=== PATIENT | female | born 1990 | race Caucasian/White ===

== ENCOUNTER 2016-08-09 20:43 | Emergency (ER) | payer SELFPAY ==
[~2016-08-09] VITALS: Ht 162.6 cm; Wt 140.0 kg
[2016-08-09 20:50] VITALS: TEMP 36.7; Ht 162.6 cm; Wt 140.0 kg
[2016-08-09] MEDS ORDERED: IBUP-1050 PO (21:46)
[2016-08-09 22:17] LABS: URINE APPEARANCE CLEAR (CLEAR); URINE BILIRUBIN NEG (NEG); URINE COLOR YELLOW; URINE EPITHELIAL CELL AUTO 0-5 /lpf (0-5); URINE NITRITE NEG (NEG); URINE SPECIFIC GRAVITY 1.003 (1.000-1.030); UROBILINOGEN NEG (NEG); ZZUR CULT IF INDIC CLEAN CATCH NO
[2016-08-09 22:22] LABS: MANUAL MICROSCOPIC REQUIRED? NO; REVIEW REQ? NO
[2016-08-09 22:40] LABS: BASO % 0.3 %; BASO ABS # 0.02 K/uL (0-0.2); COMPLETE YES; HEMATOCRIT 41.1 % (37-47); IG% 0.1 %; LYMPH % 36.1 %; LYMPH ABS # 2.85 K/uL (1.2-3.4); MEAN CELL VOLUME 83.9 fL (80-100); MEAN CORPUSCULAR HEMOGLOBIN 28.6 pg (25-34); MEAN CORPUSCULAR HGB CONC 34.1 g/dl (32-36); MEAN PLATELET VOLUME 10.7 fL (7.4-10.4); MONO % 5.4 %; NEUT % 55.1 %; PLATELET COUNT 228 K/uL (130-400); WHITE BLOOD COUNT 7.89 K/uL (4.8-10.8)
[2016-08-09 23:00] LABS: BUN/CREATININE RATIO 20.7 (10-20); CALCIUM 8.8 mg/dl (8.5-10.1); CREATININE 0.72 mg/dl (0.60-1.20); POTASSIUM 3.9 mmol/L (3.5-5.1)
[2016-08-09 23:02] LABS: ALB/GLOB RATIO 1.1 (0.9-2)
--- NOTE | 2016-08-09 23:38 | EMERGENCY ROOM VISIT NOTE ---
History Report prepared by Messi: Sandi Treadwell Under the Supervision of: Dr. Marisela Huerta M.D. First contact with patient: 23:10 Chief Complaint: VAGINAL BLEEDING Stated Complaint: SEVERE VAGINAL BLEEDING History of Present Illness The patient is a 26 year old female who presents to the Emergency Room with complaints of waxing and waning vaginal bleeding for the past 2 months. She notes that sometimes the bleeding is light, like typical spotting, and sometimes the bleeding is very heavy. Tonight her bleeding was extremely heavy. She bled through a tampon, her underwear, and her pants within 1 hour. When she went to the bathroom she noticed large clots and very heavy bleeding. She bled through another tampon and pad since arriving in the ED. The patient rates her pain as a 4/10 in severity. She also reports headaches and feeling lightheaded. She has not seen a emergency department coordinator for these symptoms. She denies any previous pregnancies. The patient has been eating and drinking normally. Source of History: patient Onset: 2 months ago Position: other (vagina) Symptom Intensity: 4/10 Quality: other (bleeding) Timing: waxes/wanes Associated Symptoms: + headache Note: Pt reports lightheadedness. Review of Systems See HPI for pertinent positives & negatives. A total of 10 systems reviewed and were otherwise negative. Past Medical & Surgical Surgical Problems: (1) History of cholecystectomy (2) S/P tonsillectomy and adenoidectomy Family History Cancer Diabetes mellitus Gallbladder disease Heart disease Hypertension Kidney disease Kidney stones Lung disease Social History Smoking Status: Current Every Day Smoker Alcohol Use: occasionally Drug Use: none Marital Status: in relationship Housing Status: lives with significant other Occupation Status: unemployed Current/Historical Medications Scheduled Ibuprofen (Advil), 400 MG PO PRN UD Norethindrone Acetate (Aygestin), 1 TAB PO DIRECTED Allergies Coded Allergies: Shellfish (Verified Allergy, Mild, 12/01/15) Physical Exam Vital Signs Date Time Temp Pulse Resp B/P Pulse Ox O2 Delivery O2 Flow Rate FiO2 08/10/16 00:01 76 18 152/81 96 08/09/16 22:53 69 18 128/79 96 Room Air 08/09/16 20:50 36.7 85 18 145/87 97 Room Air Physical Exam Vital signs reviewed. General: Well-appearing 26 year old female, in no significant distress. HEENT: No scleral icterus, PERRLA, neck supple. Atraumatic. Cardiovascular: Regular rate and rhythm, no extra sounds. Pulmonary: Clear to auscultation bilaterally, normal work of breathing. Abdomen: Soft, obese, nontender, nondistended, positive bowel sounds. Pelvic: Limited due to body habitus, minimal dark blood in the vault. Musculoskeletal: Atraumatic, no peripheral edema. Neurologic: Patient awake alert and oriented x 3 Skin: Warm, dry, no rash Medical Decision & Procedures Laboratory Results 08/09/16 22:00 Red Blood Count 4.90, Mean Corpuscular Volume 83.9, Mean Corpuscular Hemoglobin 28.6, Mean Corpuscular Hemoglobin Concent 34.1, Mean Platelet Volume 10.7, Neutrophils (%) (Auto) 55.1, Lymphocytes (%) (Auto) 36.1, Monocytes (%) (Auto) 5.4, Eosinophils (%) (Auto) 3.0, Basophils (%) (Auto) 0.3, Neutrophils # (Auto) 4.34, Lymphocytes # (Auto) 2.85, Monocytes # (Auto) 0.43, Eosinophils # (Auto) 0.24, Basophils # (Auto) 0.02 08/09/16 22:00 Test 08/09/16 21:25 08/09/16 22:00 Urine Color YELLOW Urine Appearance CLEAR (CLEAR) Urine pH 7.0 (4.5-7.5) Urine Specific Chromo 1.003 (1.000-1.030) Urine Protein NEG (NEG) Urine Glucose (UA) NEG (NEG) Urine Ketones NEG (NEG) Urine Occult Blood 2+ (NEG) Urine Nitrite NEG (NEG) Urine Bilirubin NEG (NEG) Urine Urobilinogen NEG (NEG) Urine Leukocyte Esterase NEG (NEG) Urine WBC (Auto) 0 /hpf (0-5) Urine RBC (Auto) 0-4 /hpf (0-4) Urine Hyaline Casts (Auto) 0 /lpf (0-5) Urine Epithelial Cells (Auto) 0-5 /lpf (0-5) Urine Bacteria (Auto) NEG (NEG) Urine Test NEG (NEG) White Blood Count 7.89 K/uL (4.8-10.8) Red Blood Count 4.90 M/uL (4.2-5.4) Hemoglobin 14.0 g/dL (12.0-16.0) Hematocrit 41.1 % (37-47) Mean Corpuscular Volume 83.9 fL (80-100) Mean Corpuscular Hemoglobin 28.6 pg (25-34) Mean Corpuscular Hemoglobin Concent 34.1 g/dl (32-36) Platelet Count 228 K/uL (130-400) Mean Platelet Volume 10.7 fL (7.4-10.4) Neutrophils (%) (Auto) 55.1 % Lymphocytes (%) (Auto) 36.1 % Monocytes (%) (Auto) 5.4 % Eosinophils (%) (Auto) 3.0 % Basophils (%) (Auto) 0.3 % Neutrophils # (Auto) 4.34 K/uL (1.4-6.5) Lymphocytes # (Auto) 2.85 K/uL (1.2-3.4) Monocytes # (Auto) 0.43 K/uL (0.11-0.59) Eosinophils # (Auto) 0.24 K/uL (0-0.5) Basophils # (Auto) 0.02 K/uL (0-0.2) RDW Standard Deviation 41.7 fL (36.4-46.3) RDW Coefficient of Variation 13.7 % (11.5-14.5) Immature Granulocyte % (Auto) 0.1 % Immature Granulocyte # (Auto) 0.01 K/uL (0.00-0.02) Anion Gap 13.0 mmol/L (3-11) Est Creatinine Clear Calc Drug Dose 163.1 ml/min Estimated GFR () 132.1 Estimated GFR (Non- 114.0 BUN/Creatinine Ratio 20.7 (10-20) Calcium Level 8.8 mg/dl (8.5-10.1) Total Bilirubin 0.2 mg/dl (0.2-1) Aspartate Amino Transf (AST/SGOT) 29 U/L (15-37) Alanine Aminotransferase (ALT/SGPT) 41 U/L (12-78) Alkaline Phosphatase 56 U/L (45-117) Total Protein 7.4 gm/dl (6.4-8.2) Albumin 3.9 gm/dl (3.4-5.0) Globulin 3.5 gm/dl (2.5-4.0) Albumin/Globulin Ratio 1.1 (0.9-2) Laboratory results per my review. Medications Administered Medications (Trade) Dose Ordered Sig/Arcelia Route Start Time Stop Time Status Last Admin Dose Admin Norethindrone Acetate (Aygestin Tab) 10 mg NOW STAT PO 08/09/16 23:48 08/09/16 23:49 DC 08/09/16 23:59 10 MG ED Course 2310: Past medical records reviewed. The patient was evaluated in room C4. A complete history and physical examination was performed. 2331: At this time I performed a pelvic examination. Please see the physical examination for my findings. 2338: I spoke with Dr. Hickman of [facility] ob-personal computer network analyst. We discussed the patient' s case. She will follow-up with the patient in the office. 2348: Aygestin tab 10 mg PO 2349: I reassessed the patient at this time. She is feeling better and resting comfortably. I discussed the results and treatment plan with the patient. I answered all pertaining questions that she had. She expressed understanding and verbalized agreement. The patient will be discharged home. Medical Decision Differential diagnosis: Etiologies such as ectopic , dysfunction uterine bleeding, bleeding dyscrasia, trauma, infection, as well as others were entertained. This pt was evaluated and appeared to be in no distress. IV access was obtained and lab work was drawn. PT was placed on the plastic surgery manager. Pelvic exam was performed and lab work was drawn. Pt H/H is stable. Pelvic exam was performed and reveals no significant bleeding currently. Pt was d/w Dr Hickman of OBGYN who agrees with aygestin therapy. Pt was given 10 mg now and instructions for a taper. OBGYN will contact the pt for close follow up. Pt is aware of the plan and agrees. Consults Time Called: [phone] Consulting Physician: Dr. Hickman Returned Call: [phone] Hickman of [facility] ob-personal computer network analyst. We discussed the patient's case. She will follow-up with the patient in the office. Impression Primary Impression: Abnormal vaginal bleeding Scribe Attestation The scribe's documentation has been prepared under my direction and personally reviewed by me in its entirety. I confirm that the note above accurately reflects all work, treatment, procedures, and medical decision making performed by me. Departure Information Dispostion Home / Self-Care Prescriptions Norethindrone Acetate (AYGESTIN) 5 Mg Tab 1 TAB PO DIRECTED for 6 Days, #9 TAB 2 tabs 2 days, 1-1/2 tabs 2 days, one tablet 2 days then stop Prov: Marisela Huerta M.D. 08/09/16 Referrals Zehra Hickman MD Forms HOME CARE DOCUMENTATION FORM, IMPORTANT VISIT INFORMATION, WORK / SCHOOL INSTRUCTIONS Patient Instructions [facility] Additional Instructions Diagnosis: Vaginal bleeding OBGYN will contact you for follow up appt. Aygestin 2 tabs 2 days, 1-1/2 tabs 2 days, one tab 2 days then stop Drink plenty of clear fluids. You should expect later bleeding after the completion of the course of hormones. Return to the emergency department for worsening of symptoms or any medical concerns.
[2016-08-09] MEDS ORDERED: AYG/5 PO (23:44)
[2016-08-09] MEDS ORDERED: NORETHINDRONE ACETATE 5 MG TAB PO STA (23:48)
[2016-08-10 00:01] VITALS: BP 152/81; PULSE 76; O2SAT 96
== END 2016-08-10 00:01 | disposition home or self-care (01) ==
LOC: C.EDB 20:45 → C.EDC 08-10 00:01
DX: N93.9 Abnormal uterine and vaginal bleeding, unspecified (principal); Z90.49 Acquired absence of other specified parts of digestive tract